=== PATIENT | female | born 1965 | race African-American/Black ===

== ENCOUNTER 2017-04-03 19:05 | Emergency (ER) | payer OTHER ==
[~2017-04-03] VITALS: Ht 160 cm; Wt 39.0 kg
[2017-04-03 19:05] VITALS: Ht 160 cm; Wt 39.0 kg
[2017-04-03] MEDS ORDERED: ONDANSETRON (ODT) 4 MG TAB ODT STA (22:05)
[2017-04-03] MEDS ORDERED: morphine 10 MG INJ IM ONE (22:30)
--- NOTE | 2017-04-03 22:52 | RADRPT ---
PROCEDURE: CT Lumbar Spine without contrast. CLINICAL INDICATION: Lumbar spine pain status post fall. TECHNIQUE: The study was performed on a multislice multidetector CT scanner. Spiral axial 1 mm im ages were obtained through the lumbar spine without intravenous contrast. 1 or more of the following dose reduction techniques were utilized: Automated exposure control, adjustment of the mA and/or k V according to patient's size, iterative reconstruction technique. Coronal and sagittal reformation s were obtained. The images were reviewed on a PACS workstation. RADIATION DOSE: CTDIvol: 6.4 mGyDLP: 165.7 mGy-cm COMPARISON: No prior studies are available for comparison. FINDINGS: The alignment of the lumbar spine is normal. No vertebral body subluxation is seen. The interverte bral discs are normal in height. The vertebral body heights and marrow density are normal. The par aspinal soft tissues unremarkable. No significant paraspinal soft tissue swelling. L1-L2: The posterior margin of the disc is normal in appearance. No significant disc bulge or prot rusion is evident. The central canal and neural foramina are adequately patent. L2-L3: The posterior margin of the disc is normal in appearance. No significant disc bulge or prot rusion is evident. The central canal and neural foramina are adequately patent. L3-L4: There is a 2-3 mm annular disc bulge asymmetric to the left paracentral/foraminal region. T he thecal sac and lateral recesses are patent. There is mild bilateral facet spondylosis. There is mild left neural foramen. The right neural foramen is patent. L4-L5: There is a 2 mm annular disc bulge. The thecal sac and lateral recesses are patent. There is moderate bilateral facet spondylosis. There is mild bilateral neural foraminal narrowing. L5-S1: There is moderate spondylosis, with prominent anterior and posterior osteophytes and superim posed 3 mm annular disc bulge, asymmetric to the foraminal regions. There is mild to moderate bilat eral facet spondylosis. There is moderate narrowing of both lateral recesses. The thecal sac measu res 11 mm midline AP diameter. There is severe bilateral neural foraminal narrowing. IMPRESSION: 1. No acute abnormality of the lumbar spine. No evidence of fracture. 2. 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 This results in moderate narrowing of both lateral rece sses and severe bilateral neural foraminal narrowing. RPTAT: HGAS .Armand Bell MD, Date Time Electronically viewed and signed by .Armand Bell MD, on 04/03/2017 22:52 .S/
--- NOTE | 2017-04-03 22:53 | RADRPT ---
PROCEDURE: XR Hip. CLINICAL INDICATION: Right hand pain status post fall. TECHNIQUE: AP and frog lateral views of the right hip were performed. COMPARISON: None available FINDINGS: There is normal appearance of the right hip joint without significant sclerosis or joint space narro wing. The proximal right femur is normal in appearance. There is no evidence of fracture. The sylvain tabulum is intact. There is no significant osteopenia. The visualized sacrum is unremarkable. The soft tissues are normal in appearance. IMPRESSION: 1. Normal radiographs of the right hip. No evidence of fracture or dislocation. RPTAT: HGAS .Armand Bell MD, MD Date Time Electronically viewed and signed by .Armand Bell MD, MD on 04/03/2017 22:52 .S/
[2017-04-03] MEDS ORDERED: KETOROLAC 30 MG INJ IV STA (23:08)
[2017-04-03] MEDS ORDERED: AMIT10TA6 PO (23:41)
[2017-04-03] MEDS ORDERED: GABA300C16 PO (23:41)
[2017-04-03] MEDS ORDERED: GLIP-95 PO (23:41)
[2017-04-03] MEDS ORDERED: INSU100V3 IJ (23:41)
[2017-04-03] MEDS ORDERED: METF-480 PO (23:55)
--- NOTE | 2017-04-04 00:06 | ERD ---
ER Documentation Chief Complaint Date/Time DATE: 04/04/17 TIME: 00:05 Chief Complaint bib ra c/o right hip/back/buttox pain since fell in shower in am, no LOC HPI 51-year-old female complains of right hip back and buttocks pain that she fell in the shower this morning. No head trauma. No loss conscious. No bowel or bladder incontinence. No focal neurologic complaints. No other current issues. ROS All systems reviewed and are negative except as per history of present illness. Medications Home Meds Reported Medications Metformin* (Glucophage*) 850 Mg Tablet, 850 MG PO WITH BREAKFAST DINNE, #60 TAB 04/03/17 Insulin Regular, Human (Humulin R) Unknown Strength Vial, 12 UNIT IJ, VIAL 04/03/17 Amitriptyline Hcl* (Amitriptyline Hcl*) 10 Mg Tablet, 10 MG PO QHS, #30 TAB 04/03/17 Gabapentin* (Gabapentin*) 300 Mg Capsule, 300 MG PO TID, #90 CAP 04/03/17 Glipizide* (Glipizide*) 10 Mg Tablet, 10 MG PO AC BREAKFAST DINNER, TAB 04/03/17 Allergies Allergies: Coded Allergies: No Known Drug Allergies (Verified Allergy, Unknown, 04/03/17) PMhx/Soc History of Surgery: Yes (C SECTION '89) Anesthesia Reaction: No Hx Neurological Disorder: No Hx Respiratory Disorders: No Hx Cardiac Disorders: Yes (HTN) Hx Psychiatric Problems: No Hx Miscellaneous Medical Probl: Yes (DM) Hx Alcohol Use: Yes Hx Substance Use: No Hx Tobacco Use: Yes (MARIJUANA) Smoking Status: Never smoker Physical Exam Vitals Vital Signs Date Time Temp Pulse Resp B/P Pulse Ox O2 Delivery O2 Flow Rate FiO2 04/03/17 21:45 99.1 100 20 120/85 100 Room Air 04/03/17 19:05 99.1 123 20 116/80 100 Physical Exam Const: [] Head: Atraumatic Eyes: Normal Conjunctiva ENT: Normal External Ears, Nose and Mouth. Neck: Full range of motion..~ No meningismus. Resp: Clear to auscultation bilaterally Cardio: Regular rate and rhythm, no murmurs Abd: Soft, non tender, non distended. Normal bowel sounds Skin: No petechiae or rashes Back: No midline or flank tenderness Ext: No cyanosis, or edema Neur: Awake and alert Psych: Normal Mood and Affect Results 24 hrs Current Medications Medications (Trade) Dose Ordered Sig/Gt Route PRN Reason Start Time Stop Time Status Last Admin Dose Admin Morphine Sulfate (morphine) 4 mg ONCE ONCE IM 04/03/17 22:30 04/03/17 22:31 DC 04/03/17 22:25 Ondansetron HCl (Zofran Odt) 4 mg ONCE STAT ODT 04/03/17 22:05 04/03/17 22:07 DC 04/03/17 22:25 Ketorolac Tromethamine (Toradol) 30 mg ONCE STAT IV 04/03/17 23:08 04/03/17 23:12 DC 04/03/17 23:32 Procedures/MDM Patient's musculoskeletal symptoms have stabilized while they have been evaluated in the department and are appropriate for outpatient work up. No evidence of cauda equina, cord compression, infiltrative, or infectious etiology. X-ray Hip 2V Interpreted by me: Bones: No fracture Joints: No dislocation Foreign body: None Lumbar spine CT shows no evidence of acute pathology Departure Diagnosis: Primary Impression: Back pain Back pain location: back pain in unspecified location Chronicity: acute Back pain laterality: right Qualified Code: M54.9 - Acute right-sided back pain, unspecified back location Additional Impression: Injury of back Encounter type: initial encounter Qualified Code: S39.92XA - Injury of back , initial encounter Condition: Stable BLAISE RIVERA Apr 04, 2017 00:06
[2017-04-04] MEDS ORDERED: TRAM50TA2 PO (00:08)
[2017-04-04 00:18] VITALS: BP 145/94; PULSE 102; RESP 20; TEMP 99.1
== END 2017-04-04 00:08 | disposition home or self-care (01) ==
LOC: E/R 19:05
DX: S39.92XA Unspecified injury of lower back, initial encounter (principal); I10 Essential (primary) hypertension; E11.9 Type 2 diabetes mellitus without complications; W18.2XXA Fall in (into) shower or empty bathtub, initial encounter; Y92.9 Unspecified place or not applicable; Z79.4 Long term (current) use of insulin; Z79.84 Long term (current) use of oral hypoglycemic drugs; Z87.891 Personal history of nicotine dependence
CPT/HCPCS: 72131; 73510; 96372; 96374; 99285; J1885; J2270